=== PATIENT | male | born 1980 | race Two or more races ===

== ENCOUNTER 2018-05-10 11:56 | Outpatient (CLI) | payer OTHER | END 2018-05-10 12:06 | disposition home or self-care (01) | LOC: LAB 11:56 | DX: J11.1 Influenza due to unidentified influenza virus with other respiratory manifestations (principal); J20.0 Acute bronchitis due to Mycoplasma pneumoniae ==

== ENCOUNTER 2018-07-10 11:53 | Outpatient (CLI) | payer OTHER | END 2018-07-10 11:58 | disposition home or self-care (01) | LOC: LAB 11:53 | DX: J02.8 Acute pharyngitis due to other specified organisms (principal); Z11.3 Encounter for screening for infections with a predominantly sexual mode of transmission ==

== ENCOUNTER 2019-09-18 08:39 | Outpatient (CLI) | payer OTHER | END 2019-09-18 08:43 | disposition home or self-care (01) | LOC: LAB 08:39 | DX: Z11.1 Encounter for screening for respiratory tuberculosis (principal) ==

== ENCOUNTER 2019-12-25 06:00 | Outpatient (CLI) | payer OTHER | END 2019-12-25 14:08 | disposition home or self-care (01) | LOC: PPH VACUNA 06:00 | DX: Z23 Encounter for immunization (principal) ==

== ENCOUNTER 2021-01-05 08:00 | Outpatient (CLI) | payer OTHER | END 2021-01-05 08:30 | disposition home or self-care (01) | LOC: PPH VACUNA 08:00 | PROVIDERS: ATTEND Emergency Medicine Pediatric Emergency Medicine | DX: Z23 Encounter for immunization (principal) ==

== ENCOUNTER 2021-08-26 08:31 | Outpatient (CLI) | payer OTHER | END 2021-08-26 08:33 | disposition home or self-care (01) | LOC: LAB 08:31 | PROVIDERS: ATTEND General Practice | DX: R07.0 Pain in throat (principal) ==

== ENCOUNTER 2021-12-30 08:00 | Outpatient (CLI) | payer OTHER | END 2021-12-30 08:05 | disposition home or self-care (01) | LOC: PPH VACUNA 08:00 | PROVIDERS: ATTEND Emergency Medicine Pediatric Emergency Medicine | DX: Z23 Encounter for immunization (principal) ==

== ENCOUNTER → 2022-12-09 | Outpatient (CLI) | payer OTHER | END | disposition home or self-care (01) | LOC: PPH VACUNA | PROVIDERS: ATTEND Emergency Medicine Pediatric Emergency Medicine | DX: Z23 Encounter for immunization (principal) | CPT/HCPCS: 90686; G0008 ==

== ENCOUNTER 2023-01-20 09:07 | Emergency (ER) | payer OTHER ==
[~2023-01-20] VITALS: Ht 175.3 cm; Wt 88.9 kg
[2023-01-20 10:01] LABS: HEMATOCRIT 46.5 % (39.0-48.0); HEMOGLOBIN 15.3 g/dL (13-16.00); MEAN CELL VOLUME 88.2 fL (80.0-100.00); MEAN CORPUSCULAR HGB CONC 32.8 g/dl (32.0-36.0); PLATELET COUNT 244 K/uL (150-450); RED BLOOD COUNT 5.27 M/uL (4.00-6.00)
[2023-01-20 10:31] LABS: URINE APPEARANCE Clear; URINE BILIRRUBIN Negative (NEGATIVE); URINE BLOOD Negative; URINE COLOR Dark Yellow; URINE GLUCOSE Negative (NEGATIVE); URINE LEUKOCYTE Negative; URINE NITRATE Negative; URINE PROTEIN Negative (NEGATIVE); URINE UROBILINOGEN 0.2 E.U./dl
[2023-01-20 10:33] LABS: CALCIUM 9.3 mg/dL (8.5-10.1); CREATININE SERUM 0.99 mg/dL (0.70-1.30); GFR 82.12; POTASSIUM 4.43 mEq/L (3.5-5.1)
[2023-01-20 10:36] LABS: URINE BACTERIA 28.9 uL (0.0-1933); URINE RBC 6.3 uL (0.0-20.8); URINE WBC 2.4 uL (0.0-23.2)
== END 2023-01-20 14:26 | disposition home or self-care (01) ==
LOC: ER 09:07
PROVIDERS: Emergency Medicine
DX: R10.32 Left lower quadrant pain (principal); N20.1 Calculus of ureter; Z88.0 Allergy status to penicillin

== ENCOUNTER 2023-02-02 05:00 | Day surgery (SDC) | payer OTHER ==
[2023-01-31 08:22] LABS: INR 1.04; PARTIAL THROMBOPLASTIN TIME 26.2 SECONDS (22.0-34.0); PROTHROMBIN TIME 10.9 SECONDS (9.0-11.5)
[~2023-02-02] VITALS: Ht 175.3 cm; Wt 85.3 kg
== END 2023-02-02 12:00 | disposition home or self-care (01) ==
LOC: CIR.AMB 05:00
PROVIDERS: ATTEND Urology
DX: N20.1 Calculus of ureter (principal); Z88.0 Allergy status to penicillin; Z88.8 Allergy status to other drugs, medicaments and biological substances; Z20.822 Contact with and (suspected) exposure to COVID-19

== ENCOUNTER 2023-03-15 08:08 | Outpatient (CLI) | payer OTHER ==
[2023-03-15 09:17] LABS: PH,URINE 6.5 (5.0-8.0); URINE APPEARANCE Clear; URINE BILIRRUBIN Negative (NEGATIVE); URINE BLOOD Negative; URINE COLOR Yellow; URINE GLUCOSE Negative (NEGATIVE); URINE LEUKOCYTE Negative; URINE NITRATE Negative; URINE PROTEIN Negative (NEGATIVE); URINE UROBILINOGEN 0.2 E.U./dl
[2023-03-15 09:52] LABS: URINE BACTERIA 1.2 uL (0.0-1933); URINE EPITHELIAL CELLS 0.4 uL (0.0-38.8); URINE RBC 0.4 uL (0.0-20.8); URINE WBC 0 uL (0.0-23.2)
== END 2023-03-15 09:00 | disposition home or self-care (01) ==
LOC: LAB 08:08
PROVIDERS: ATTEND Urology
DX: N39.0 Urinary tract infection, site not specified (principal)

== ENCOUNTER 2023-07-18 06:31 | Outpatient (CLI) | payer OTHER ==
[2023-07-18 09:32] LABS: NA URINE 24 HR 188.825 mmol/24h (40-220)
[2023-07-19 13:07] LABS: C ur 7.6 mg/dL (Not Estab.); Phos ur 39.3 mg/dL (Not Estab.)
== END 2023-07-18 06:33 | disposition home or self-care (01) ==
LOC: LAB 06:31
PROVIDERS: ATTEND Urology
DX: N20.0 Calculus of kidney (principal)

== ENCOUNTER 2023-10-14 07:09 | Outpatient (CLI) | payer OTHER | END 2023-10-14 07:11 | disposition home or self-care (01) | LOC: TOM 07:09 | PROVIDERS: ATTEND Surgery | DX: R10.32 Left lower quadrant pain (principal); R19.4 Change in bowel habit ==

== ENCOUNTER → 2023-11-01 06:25 | Outpatient (CLI) | payer OTHER ==
[2023-11-01 07:01] LABS: HEMOGLOBIN 14.2 g/dL (13-16.00); MEAN CELL VOLUME 86.3 fL (80.0-100.00); MEAN CORPUSCULAR HEMOGLOBIN 29.8 pg (27.00-32.0); MEAN CORPUSCULAR HGB CONC 34.6 g/dl (32.0-36.0); PLATELET COUNT 231 K/uL (150-450); RED BLOOD COUNT 4.76 M/uL (4.00-6.00); RED CELL DISTRIBUTION WIDTH 12.9 % (11.5-14.5)
[2023-11-01 07:10] LABS: INR 1.03; PARTIAL THROMBOPLASTIN TIME 28.1 SECONDS (22.0-34.0); PROTHROMBIN TIME 10.8 SECONDS (9.0-11.5)
[2023-11-01 07:33] LABS: ALBUMIN 4.1 gm/dL (3.4-5.0); BILIRUBIN TOTAL 0.93 mg/dL (0.3-1.2); CALCIUM 9.2 mg/dL (8.5-10.1); CREATININE SERUM 0.8 mg/dL (0.70-1.30); GFR 105.01; GLOBULINA 2.9 G/DL (2.4-3.5); POTASSIUM 4.56 mEq/L (3.5-5.1)
== END | disposition home or self-care (01) ==
LOC: LAB 06:25
PROVIDERS: ATTEND Surgery
DX: R10.32 Left lower quadrant pain (principal); R19.4 Change in bowel habit; Z83.719 Family history of colon polyps, unspecified

== ENCOUNTER 2023-11-24 08:41 | Day surgery (SDC) | payer OTHER ==
[2023-11-24] MEDS ORDERED: fentaNYL CITRATE 50 MCG/ML AMPUL IV ONE (11:45)
[2023-11-24] MEDS ORDERED: DIPHENHYDRAMINE HCL 50 MG/ML VIAL 1ML IV ONE (11:45)
[2023-11-24] MEDS ORDERED: MIDAZOLAM HCL 2 MG/2 ML VIAL IV ONE (11:45)
== END 2023-11-24 13:20 | disposition home or self-care (01) ==
LOC: AMB-ENDOS 08:41
PROVIDERS: ATTEND Surgery
DX: K57.30 Diverticulosis of large intestine without perforation or abscess without bleeding (principal)

== ENCOUNTER 2023-12-20 08:57 | Outpatient (CLI) | payer OTHER | END 2023-12-20 09:01 | disposition home or self-care (01) | LOC: LAB 08:57 | PROVIDERS: ATTEND Preventive Medicine Occupational Medicine | DX: A49.1 Streptococcal infection, unspecified site (principal); A02.9 Salmonella infection, unspecified; K62.89 Other specified diseases of anus and rectum ==

== ENCOUNTER 2024-01-09 06:53 | Outpatient (CLI) | payer OTHER ==
[2024-01-09 09:23] LABS: ALBUMIN 4.2 gm/dL (3.4-5.0); BILIRUBIN TOTAL 0.83 mg/dL (0.3-1.2); CALCIUM 9.6 mg/dL (8.5-10.1); CREATININE SERUM 0.83 mg/dL (0.70-1.30); GFR 100.19; GLOBULINA 2.9 G/DL (2.4-3.5); POTASSIUM 5.26 mEq/L (3.5-5.1); TOTAL PROTEIN 7.1 gm/dL (6.4-8.2)
[2024-01-09 09:37] LABS: TRIGLYCERIDES 67 mg/dL (0-150)
[2024-01-09 09:38] LABS: CHOLESTEROL 264 mg/dL (0-200)
== END 2024-01-09 06:54 | disposition home or self-care (01) ==
LOC: LAB 06:53
PROVIDERS: ATTEND Internal Medicine
DX: E03.9 Hypothyroidism, unspecified (principal); I10 Essential (primary) hypertension; E78.9 Disorder of lipoprotein metabolism, unspecified; E55.9 Vitamin D deficiency, unspecified

== ENCOUNTER 2024-03-02 11:22 | Outpatient (CLI) | payer OTHER | END 2024-03-02 11:32 | disposition home or self-care (01) | LOC: PPH VACUNA 11:22 | PROVIDERS: ATTEND Emergency Medicine Pediatric Emergency Medicine | DX: Z23 Encounter for immunization (principal) ==